=== PATIENT | male | born 1965 | race Caucasian/White ===

== ENCOUNTER 2019-02-07 17:16 | Emergency (ER) | payer SELFPAY ==
[2019-02-07 17:22] VITALS: BP 154/96; PULSE 69; TEMP 98.1; BMI 22.4
[2019-02-07] MEDS ORDERED: MECLIZINE HCL 25 MG TABLET (FP) PO ONE (17:37)
[2019-02-07] MEDS ORDERED: MECLIZINE HCL 25 MG TABLET (FP) ONE (18:11)
[2019-02-07 18:42] LABS: BASO % 0.3 % (0-2.0); EOS % 0.1 % (0-4.5); HEMATOCRIT 44.4 % (35.4-49); HEMOGLOBIN 14.8 GM/dl (11.7-16.9); LYMPH % 11.2 % (8-40); MCH 34.3 pg (25.7-33.7); MCHC 33.3 g/dl (32.0-35.9); MEAN CELL VOLUME 103.2 fl (80-96); MEAN PLT VOLUME 8.6 fl (7.5-11.1); MONO % 3.5 % (3.8-10.2); NEUT % 84.9 % (42.8-82.8); PLATELET COUNT 214 K/MM3 (134-434); RDW 13.3 % (11.9-15.9); WHITE BLOOD COUNT 6.3 K/mm3 (4.0-10.8)
[2019-02-07 18:58] LABS: INR 1.02 (0.82-1.09); PROTHROMBIN TIME (PATIENT) 11.4 SEC (10.2-13.0)
[2019-02-07 19:04] LABS: ALBUMIN 4.6 g/dl (3.4-5.0); BILIRUBIN,TOTAL 1.1 mg/dl (0.2-1); CALCIUM 9.3 mg/dl (8.5-10); CREATININE 0.7 mg/dl (0.55-1.3); POTASSIUM 4.3 mmol/L (3.5-5.1); TOT PROT 7.8 g/dl (6.4-8.2)
--- NOTE | 2019-02-07 19:16 | PDOC ---
*Physical Exam - Vital Signs Last Vital Signs Temp Pulse Resp BP Pulse Ox 98.1 F 69 20 154/96 100 02/07/19 17:16 02/07/19 17:16 02/07/19 17:16 02/07/19 17:16 02/07/19 17:16 ED Treatment Course - LABORATORY CBC & Chemistry Diagram: 02/07/19 18:25 02/07/19 18:25 - ADDITIONAL ORDERS Additional order review: Laboratory Results 02/07/19 02/07/19 18:25 18:25 PT with INR 11.4 INR 1.02 Sodium 141 Potassium 4.3 Chloride 101 Carbon Dioxide 29 Anion Gap 11 BUN 15.0 Creatinine 0.7 Est GFR (CKD-EPI)AfAm 123.13 Est GFR (CKD-EPI)NonAf 106.24 Random Glucose 94 Calcium 9.3 Total Bilirubin 1.1 H AST 31 ALT 21 Alkaline Phosphatase 43 L Creatine Kinase 202 Total Protein 7.8 Albumin 4.6 02/07/19 18:25 RBC 4.30 MCV 103.2 H MCHC 33.3 RDW 13.3 MPV 8.6 Neutrophils % 84.9 H Lymphocytes % 11.2 Monocytes % 3.5 L Eosinophils % 0.1 Basophils % 0.3 - Medications Given in the ED: ED Medications Discontinued Medications Generic Name Dose Route Start Last Admin Trade Name Christina PRN Reason Stop Dose Admin Meclizine HCl 25 mg 02/07/19 17:37 02/07/19 18:12 Antivert - PO 02/07/19 17:38 25 mg ONCE ONE Administration Progress Note - Progress Note Progress Note: Care is transferred to [place] from Dr. Mccain at 1900 hrs. This is a 53-year- old male with history of chronic alcohol use who comes in with vertigo-type symptoms. Patient is undergoing a workup for his vertigo and was given meclizine with improvement of his symptoms. Plan is that if CAT scan is negative patient will be discharged home and follow-up with his primary care doctor for further evaluation and workup of his vertigo. 19:[address] shows no acute pathology. There is a small abnormality that patient was made aware of and will follow-up with an MRI it is not emergent. Chest x-ray shows no acute pathology Patient is better with meclizine. Patient will be discharged home with a prescription for meclizine. Patient was advised to decrease his drinking/ alcohol consumption. Patient discharged home will follow-up with his primary care doctor *DC/Admit/Observation/Transfer Diagnosis at time of Disposition: Vertigo - Discharge Dispostion Disposition: HOME Decision to Admit order: No - Referrals - Patient Instructions Printed Discharge Instructions: DI for Vertigo Additional Instructions: For the dizziness take meclizine 1 tablet 4 times a day. It is also important that you decrease daily alcohol consumption as this could be contributing to symptoms. Stay well-hydrated Return to the emergency department immediately with ANY new, persistent or worsening symptoms. Continue any medications as previously prescribed by your physician. You should follow up with your primary doctor as soon as possible regarding today's emergency department visit. . Please make sure your doctor reviews the results of your emergency evaluation. Thank you for coming to the Emergency Department today for your care. It was a pleasure to see you today. Please note that your evaluation is INCOMPLETE until you follow-up with your doctor. - Post Discharge Activity
--- NOTE | 2019-02-08 14:39 | EKG ---
Test Reason : Blood Pressure : / mmHG Vent. Rate : 065 BPM Atrial Rate : 065 BPM P-R Int : 142 ms QRS Dur : 090 ms QT Int : 446 ms P-R-T Axes : 060 074 060 degrees QTc Int : 463 ms NORMAL SINUS RHYTHM NORMAL ECG NO PREVIOUS ECGS AVAILABLE Confirmed by LASHA LEDEZMA, APRIL ([id number]) on 02/08/2019 2:39:34 PM Referred By: MD MARTIN Confirmed By:APRIL COLBY MD
== END 2019-02-07 20:05 | disposition home or self-care (01) ==
LOC: FER 17:16
DX: R42 Dizziness and giddiness (principal)
CPT/HCPCS: 36415; 70450-TC; 71045-TC-FY; 80053; 82550; 82553; 84484; 85025; 85610; 93005; 99284-25

== ENCOUNTER 2021-12-26 12:27 | Emergency (ER) | payer SELFPAY ==
[2021-12-26 12:43] VITALS: BP 150/91; PULSE 86; TEMP 98.4; BMI 20.9
[2021-12-26] MEDS ORDERED: diazePAM 5 MG TABLET PO ONE (13:45)
[2021-12-26] MEDS ORDERED: KETOROLAC TROMETHAMINE 30 MG/1 ML VIAL IM ONE (13:46)
[2021-12-26] MEDS ORDERED: KETOROLAC TROMETHAMINE 30 MG/1 ML VIAL ONE (13:49)
[2021-12-26] MEDS ORDERED: diazePAM 5 MG TABLET ONE (13:49)
== END 2021-12-26 15:46 | disposition home or self-care (01) ==
LOC: JER 12:27 → JERFT 12:27
PROC: 3E0233Z Introduction of Anti-inflammatory into Muscle, Percutaneous Approach (ICD-10-PCS; principal; 2021-12-26)
DX: S22.42XA Multiple fractures of ribs, left side, initial encounter for closed fracture (principal); W10.9XXA Fall (on) (from) unspecified stairs and steps, initial encounter
CPT/HCPCS: 71101-TC-LT-FY; 99284-25